=== PATIENT | female | born 1965 | race African-American/Black ===

== ENCOUNTER 2017-01-31 18:49 | Emergency (ER) | payer OTHER ==
[2017-01-31] MEDS ORDERED: AMLODIPINE PO (18:52)
[2017-01-31] MEDS ORDERED: VITAMIN D PO (18:53)
== END 2017-01-31 19:40 | disposition home or self-care (01) ==
LOC: SED 18:49
DX: S86.111A Strain of other muscle(s) and tendon(s) of posterior muscle group at lower leg level, right leg, initial encounter (principal); I10 Essential (primary) hypertension; Z90.710 Acquired absence of both cervix and uterus; Z87.891 Personal history of nicotine dependence; X58.XXXA Exposure to other specified factors, initial encounter; Y93.01 Activity, walking, marching and hiking; Y92.9 Unspecified place or not applicable
CPT/HCPCS: 99283